=== PATIENT | female | born 1960 | race Caucasian/White ===

== ENCOUNTER → 2018-04-04 | Outpatient (CLI) | payer OTHER ==
[~2018-04-04] MED LIST: CALCIUM/MAGNESI1 T17 PO; NORCO 325 MG-51 TAB PO; OMEGA-3 FISH1000 MG PO; OSTEOPRIME PO; VITAMIN B COMPL1 T16 PO; VITAMIN C500 MG PO; [UNRECOGNIZED DRUG - REMARK] PO
== END ==
LOC: MC.RAD 11:17
DX: Z12.31 Encounter for screening mammogram for malignant neoplasm of breast (principal); Z98.82 Breast implant status

== ENCOUNTER → 2019-04-10 | Outpatient (CLI) | payer OTHER | LOC: MC.RAD 15:37 | DX: Z12.31 Encounter for screening mammogram for malignant neoplasm of breast (principal); Z98.890 Other specified postprocedural states ==

== ENCOUNTER → 2020-05-22 | Outpatient (CLI) | payer OTHER | LOC: MC.RAD 13:13 | DX: Z12.31 Encounter for screening mammogram for malignant neoplasm of breast (principal) ==

== ENCOUNTER → 2021-07-23 | Outpatient (CLI) | payer BC | LOC: MC.RAD 13:08 | DX: Z12.31 Encounter for screening mammogram for malignant neoplasm of breast (principal) ==

== ENCOUNTER → 2023-08-26 | Outpatient (CLI) | payer BC | LOC: MC.RAD 13:31 | DX: Z12.31 Encounter for screening mammogram for malignant neoplasm of breast (principal) ==